=== PATIENT | male | born 1955 | race Caucasian/White ===

== ENCOUNTER 2018-01-18 08:26 | Emergency (ER) | payer BC, OTHER ==
[2018-01-18] MEDS ORDERED: IPRATROPIUM BROM 0.5MG/2.5ML ONE (09:48)
[2018-01-18] MEDS ORDERED: METHYLPREDNISOLONE 125 MG INJ ONE (09:48)
[2018-01-18] MEDS ORDERED: ALBUTEROL 2.5 MG/3 ML NEB SOL ONE ×2 (09:48→11:27)
[2018-01-18] MEDS ORDERED: NA CHLORIDE 0.9% 1,000 ML ONE (09:49)
[2018-01-18] MEDS ORDERED: FENTANYL CITR 100 MCG/2 ML ONE (09:49)
[2018-01-18] MEDS ORDERED: ONDANSETRON 4 MG/2 ML VIAL ONE (09:49)
[2018-01-18 09:59] LABS: Absolute Lymphocytes (CBC) 1.1 K/uL (0.7-4.9); Absolute Monocytes 1.4 K/uL (0.1-1.3); Absolute Neutrophil 9.4 K/uL (1.8-8.0); Basophils % 0.7 % (0-1.3); Eosinophils % 1.6 % (0-4.4); Hematocrit 38.2 % (39.6-49.0); Lymphocytes % 8.9 % (15.3-44.8); MCH 32.2 pg (27.0-35.0); MPV 7.1 fL (7.6-11.3); Monocytes % 11.8 % (3.3-12.3); RBC Red Blood Cell Count 4.11 M/uL (4.33-5.43)
[2018-01-18 10:02] LABS: Protime INR 1.12
[2018-01-18 10:22] LABS: ALT/SGPT 25 U/L (12-78); AST/SGOT 24 U/L (15-37); Albumin 3.1 g/dL (3.4-5.0); Alkaline Phosphatase 72 U/L (45-117); BUN Blood Urea Nitrogen 15 mg/dL (7-18); Bicarbonate 24 mmol/L (21-32); Bilirubin Direct 0.2 mg/dL (0-0.2); Bilirubin Total 0.5 mg/dL (0.2-1.0); Glucose Level 101 mg/dL (74-106); Magnesium 2.4 mg/dL (1.8-2.4); NT PRO-BNP 277 pg/mL (<125); Potassium 4.3 mmol/L (3.5-5.1); Protein, Total 7.1 g/dL (6.4-8.2); Sodium Level 142 mmol/L (136-145); Troponin (Emerg Dept Use Only) < 0.02 ng/mL (0.0-0.045)
--- NOTE | 2018-01-18 11:08 | RAD REPORT ---
EXAM DESCRIPTION: CT - Chest For Pe Angio - 01/18/2018 11:00 am CLINICAL HISTORY: Productive cough, chest pain, shortness of breath COMPARISON: None. TECHNIQUE: Dynamically enhanced 3 mm thick images of the chest were obtained during administration o f approximately 150mL Isovue 370 IV contrast. Coronal and oblique MIP reconstruction images were gene rated and reviewed. Exam utilizes a protocol to evaluate the pulmonary arterial tree. All CT scans are performed using dose optimization technique as appropriate and may include automated exposure control or mA/KV adjustment according to patient size. FINDINGS: No pulmonary emboli are identified. The aorta as imaged shows no acute or suspicious finding. No pericardial thickening or effusion. No consolidation or mass lesion. Right lower lobe interstitial opacification is present. No cavitatio n. Bronchial wall thickening is seen in the right lower lobe with no endobronchial lesion identified. No pleural effusion or pleural thickening. No mediastinal or hilar suspicious masses. No chest wall masses or abnormal axillary lymphadenopathy. IMPRESSION: No pulmonary emboli identified. Right lower lobe interstitial pneumonia changes are evident.
[2018-01-18] MEDS ORDERED: predniSONE 20 MG TAB ONE (11:27)
--- NOTE | 2018-01-18 11:29 | EDPHYS ---
Physician Documentation [facility] Name: Luciano Almanza Age: 62 yrs Sex: Male : 1955 Arrival Date: 01/18/2018 Time: 08:29 Bed 5 Private MD: Alcides Calvin R ED Physician Edson Freeman HPI: 01/18 09:33 This 62 yrs old Male presents to ER via Ambulatory with complaints of brett Shortness Of Breath. 09:33 The patient has shortness of breath at rest, with light activity. Onset: The brett symptoms/episode began/occurred 3 day(s) ago. Duration: The symptoms are continuous, and are steadily getting worse. The patient's shortness of breath has no apparent modifying factors. Associated signs and symptoms: Pertinent positives: productive cough, fever. Severity of symptoms: At their worst the symptoms were mild moderate in the emergency department the symptoms are unchanged. The patient has not experienced similar symptoms in the past. Historical: - Allergies: 08:40 Codeine; hb 08:40 Keflex; hb - Home Meds: 08:59 Omeprazole Oral [Active]; mexiletine Oral [Active]; zolpidem Oral [Active]; Hypothyroid sg Med [Active]; Lisinopril Oral for Hypertension [Active]; Cholesterol Med [Active]; Paxil Oral [Active]; - PMHx: 08:40 Hypertension; hb - PSHx: 08:40 None; hb - Immunization history:: Adult Immunizations up to date. - Social history:: Smoking status: Patient uses tobacco products, smokes two packs cigarettes per day. - Ebola Screening: : No symptoms or risks identified at this time. ROS: 09:34 Constitutional: Negative for fever, chills, and weight loss, Eyes: Negative for injury, brett pain, redness, and discharge, ENT: Negative for injury, pain, and discharge, Neck: Negative for injury, pain, and swelling, Cardiovascular: Negative for chest pain, palpitations, and edema, Abdomen/GI: Negative for abdominal pain, nausea, vomiting, diarrhea, and constipation, Back: Negative for injury and pain, : Negative for injury, bleeding, discharge, and swelling, MS/Extremity: Negative for injury and deformity, Skin: Negative for injury, rash, and discoloration, Neuro: Negative for headache, weakness, numbness, tingling, and seizure, Psych: Negative for depression, anxiety, suicide ideation, homicidal ideation, and hallucinations, Allergy/Immunology: Negative for hives, rash, and allergies, Endocrine: Negative for neck swelling, polydipsia, polyuria, polyphagia, and marked weight changes, Hematologic/Lymphatic: Negative for swollen nodes, abnormal bleeding, and unusual bruising. 09:34 Respiratory: Positive for cough, shortness of breath, wheezing, inspiratory, expiratory. Exam: 09:34 Constitutional: This is a well developed, well nourished patient who is awake, alert, brett and in no acute distress. Head/Face: Normocephalic, atraumatic. Eyes: Pupils equal round and reactive to light, extra-ocular motions intact. Lids and lashes normal. Conjunctiva and sclera are non-icteric and not injected. Cornea within normal limits. Periorbital areas with no swelling, redness, or edema. ENT: Nares patent. No nasal discharge, no septal abnormalities noted. Tympanic membranes are normal and external auditory canals are clear. Oropharynx with no redness, swelling, or masses, exudates, or evidence of obstruction, uvula midline. Mucous membranes moist. Neck: Trachea midline, no thyromegaly or masses palpated, and no cervical lymphadenopathy. Supple, full range of motion without nuchal rigidity, or vertebral point tenderness. No Meningismus. Chest/axilla: Normal chest wall appearance and motion. Nontender with no deformity. No lesions are appreciated. Cardiovascular: Regular rate and rhythm with a normal S1 and S2. No gallops, murmurs, or rubs. Normal PMI, no JVD. No pulse deficits. Abdomen/GI: Soft, non-tender, with normal bowel sounds. No distension or tympany. No guarding or rebound. No evidence of tenderness throughout. Back: No spinal tenderness. No costovertebral tenderness. Full range of motion. Male : Normal genitalia with no discharge or lesions. Skin: Warm, dry with normal turgor. Normal color with no rashes, no lesions, and no evidence of cellulitis. MS/ Extremity: Pulses equal, no cyanosis. Neurovascular intact. Full, normal range of motion. Neuro: Awake and alert, GCS 15, oriented to person, place, time, and situation. Cranial nerves II-XII grossly intact. Motor strength 5/5 in all extremities. Sensory grossly intact. Cerebellar exam normal. Normal gait. Psych: Awake, alert, with orientation to person, place and time. Behavior, mood, and affect are within normal limits. 09:34 Respiratory: mild respiratory distress is noted, Respirations: labored breathing, that is mild, Breath sounds: decreased breath sounds, rhonchi, wheezing: inspiratory expiratory 10:43 Musculoskeletal/extremity: DVT Exam: No signs of deep vein thrombosis. no pain, no brett swelling, no tenderness, negative Homans' sign noted on exam, no appreciated bluish discoloration, no erythema, no increased warmth. Vital Signs: 08:39 BP 158 / 93; Pulse 92; Resp 18; Temp 98.3; Pulse Ox 95% on R/A; Pain 4/10; hb 11:00 BP 138 / 72; Pulse 87; Resp 17 S; Pulse Ox 17% on R/A; Pain 0/10; sg 13:00 BP 132 / 77; Pulse 88; Resp 17; Temp 98.4; Pulse Ox 96% on R/A; Pain 0/10; sg MDM: 08:58 Patient medically screened. [facility] 09:36 Data reviewed: vital signs, nurses notes, lab test result(s), EKG, radiologic studies. [facility] 01/18 09:16 Order name: Basic Metabolic Panel; Complete Time: 10:35 [facility] 01/18 09:16 Order name: CBC with Diff; Complete Time: 10:35 [facility] 01/18 09:16 Order name: LFT's; Complete Time: 10:35 [facility] 01/18 09:16 Order name: Magnesium; Complete Time: 10:35 [facility] 01/18 09:16 Order name: NT PRO-BNP; Complete Time: 10:35 [facility] 01/18 09:16 Order name: PT-INR; Complete Time: 10:35 [facility] 01/18 09:16 Order name: Troponin (emerg Dept Use Only); Complete Time: 10:35 [facility] 01/18 09:16 Order name: XRAY Chest (1 view) [facility] 01/18 09:16 Order name: Lactate; Complete Time: 10:35 [facility] 01/18 09:16 Order name: Blood Culture Adult (2) [facility] 01/18 09:16 Order name: Procalcitonin; Complete Time: 11:18 [facility] 01/18 09:33 Order name: Flu; Complete Time: 10:35 [facility] 01/18 10:36 Order name: CT Chest For PE Angio; Complete Time: 11:18 [facility] 01/18 09:16 Order name: EKG; Complete Time: 09:18 [facility] 01/18 09:16 Order name: Cardiac monitoring; Complete Time: 09:16 [facility] 01/18 09:16 Order name: EKG - Nurse/Tech; Complete Time: 09:16 [facility] 01/18 09:16 Order name: IV Saline Lock; Complete Time: 09:16 [facility] 01/18 09:16 Order name: Labs collected and sent; Complete Time: 09:16 [facility] 01/18 09:16 Order name: O2 Per Protocol; Complete Time: 09:16 [facility] 01/18 09:16 Order name: O2 Sat Monitoring; Complete Time: 09:17 [facility] 01/18 09:35 Order name: Labs - recollect needed; Complete Time: 10:17 bd Administered Medications: 10:17 Drug: fentaNYL (PF) 25 mcg Route: IVP; Site: right antecubital; sg 11:04 Follow up: Response: No adverse reaction; Marked relief of symptoms sg 10:17 Drug: Zofran 4 mg Route: IVP; Site: right antecubital; sg 11:20 Follow up: Response: No adverse reaction; Nausea is decreased sg 10:18 Drug: NS 0.9% 1000 ml Route: IV; Rate: 1 bolus; Site: right antecubital; sg 12:31 Follow up: Response: No adverse reaction; IV Status: Completed infusion; IV Intake: sg 990ml 10:18 Drug: Albuterol - atroVENT (3:1) (2.5 mg - 0.5 mg) 3 ml Route: Nebulizer; sg 11:04 Follow up: Response: No adverse reaction sg 10:18 Drug: SOLU-Medrol 125 mg Route: IVP; Site: right antecubital; sg 11:04 Follow up: Response: No adverse reaction sg 11:35 Drug: predniSONE 40 mg Route: PO; sg 11:35 Drug: Albuterol 5 mg Route: Inhalation; sg 11:36 Drug: levofloxacin 750 mg Volume: 150 ml; Route: IVPB; Infused Over: 90 mins; Site: sg right antecubital; Disposition: 01/18/18 11:28 Discharged to Home. Impression: Dyspnea, unspecified, Chronic obstructive pulmonary disease with (acute) exacerbation, Tobacco abuse counseling, Tobacco use, Hypoxemia, Pneumonia due to other specified bacteria - right lower lobe. - Condition is Fair. - Discharge Instructions: Chronic Bronchitis, Chronic Obstructive Pulmonary Disease, How to Use an Inhaler, Community-Acquired Pneumonia, Adult, Shortness of Breath, Steps to Quit Smoking, Smoking Hazards, Chronic Obstructive Pulmonary Disease Exacerbation, Community-Acquired Pneumonia, Adult, Dfmt-ed-Dxsb. - Prescriptions for Levaquin 750 mg Oral Tablet - take 1 tablet by ORAL route once daily for 8-10 days; 9 tablet. Prednisone 20 mg Oral Tablet - take 2 tablet by ORAL route once daily for 5 days; 10 tablet. Albuterol Sulfate 90 mcg/actuation - inhale 1-2 puff by INHALATION route every 4-6 hours; 1 Inhaler. - Medication Reconciliation Form, Thank You Letter, Antibiotic Education, Prescription Opioid Use form. - Follow up: Alcides Calvin; When: 1 - 2 days; Reason: Recheck today's complaints, Continuance of care, Re-evaluation by your physician. - Problem is new. - Symptoms have improved. Signatures: Dispatcher [employer] EDMS Naldo Adams Barbara bd Gay, Steven, RN RN sg Anderson, Corey, MD MD cha Baxter, Heather, RN RN Corrections: (The following items were deleted from the chart) 13:14 11:28 01/18/2018 11:28 Discharged to Home. Impression: Dyspnea, unspecified; Chronic sg obstructive pulmonary disease with (acute) exacerbation; Tobacco abuse counseling; Tobacco use; Hypoxemia; Pneumonia due to other specified bacteria - right lower lobe. Condition is Fair. Discharge Instructions: Chronic Bronchitis, Chronic Obstructive Pulmonary Disease, How to Use an Inhaler, Shortness of Breath, Steps to Quit Smoking, Smoking Hazards, Chronic Obstructive Pulmonary Disease Exacerbation. Prescriptions for Levaquin 750 mg Oral Tablet - take 1 tablet by ORAL route once daily for 8-10 days; 9 tablet, Prednisone 20 mg Oral Tablet - take 2 tablet by ORAL route once daily for 5 days; 10 tablet, Albuterol Sulfate 90 mcg/actuation - inhale 1-2 puff by INHALATION route every 4-6 hours; 1 Inhaler. and Forms are Medication Reconciliation Form, Thank You Letter, Antibiotic Education, Prescription Opioid Use. Follow up: Alcides Calvin; When: 1 - 2 days; Reason: Recheck today's complaints, Continuance of care, Re-evaluation by your physician. Problem is new. Symptoms have improved. brett
--- NOTE | 2018-01-18 11:29 | RAD REPORT ---
EXAM DESCRIPTION: RAD - Chest Single View - 01/18/2018 10:11 am CLINICAL HISTORY: Productive cough, shortness of breath COMPARISON: October 2010 TECHNIQUE: AP portable chest image was obtained 0958 hours . FINDINGS: No focal mass or consolidation. Lung markings are accentuated by shallow inspiration. Mild interstitial edema or infiltrate could be masked by the chronic pattern. Heart and vasculature are normal. No measurable pleural effusion and no pneumothorax. No acute bony abnormality seen. No acute aortic findings suspected. IMPRESSION: Prominent interstitial lung pattern not substantially different. Early interstitial edema or infiltrate could be masked. No focal consolidation.
--- NOTE | 2018-01-18 11:29 | ER ---
Nurse's Notes [facility] Name: Luciano Almanza Age: 62 yrs Sex: Male : 1955 Arrival Date: 01/18/2018 Time: 08:29 Bed 5 Private MD: Alcides Calvin R Diagnosis: Dyspnea, unspecified;Chronic obstructive pulmonary disease with (acute) exacerbation;Tobacco abuse counseling;Tobacco use;Hypoxemia;Pneumonia due to other specified bacteria-right lower lobe Presentation: 01/18 08:38 Presenting complaint: SOB, productive cough, body aches and fever x 4 days. Transition hb of care: patient was not received from another setting of care. Onset of symptoms was January 18, 2018. Risk Assessment: Do you want to hurt yourself or someone else? Patient reports no desire to harm self or others. Care prior to arrival: None. 08:38 Method Of Arrival: Ambulatory hb 08:38 Acuity: PARAMJIT 3 hb 08:52 Initial Sepsis Screen: Does the patient meet any 2 criteria? RR > 20 per min. No. sg Patient's initial sepsis screen is negative. Does the patient have a suspected source of infection? Yes: Productive cough/pneumonia. Historical: - Allergies: 08:40 Codeine; hb 08:40 Keflex; hb - Home Meds: 08:59 Omeprazole Oral [Active]; mexiletine Oral [Active]; zolpidem Oral [Active]; Hypothyroid sg Med [Active]; Lisinopril Oral for Hypertension [Active]; Cholesterol Med [Active]; Paxil Oral [Active]; - PMHx: 08:40 Hypertension; hb - PSHx: 08:40 None; hb - Immunization history:: Adult Immunizations up to date. - Social history:: Smoking status: Patient uses tobacco products, smokes two packs cigarettes per day. - Ebola Screening: : No symptoms or risks identified at this time. Screenin:40 Abuse screen: Denies threats or abuse. Denies injuries from another. Nutritional hb screening: No deficits noted. Tuberculosis screening: No symptoms or risk factors identified. Fall Risk None identified. Assessment: 08:45 General: Appears in no apparent distress. comfortable, well groomed, well developed, sg well nourished, Behavior is calm, cooperative, appropriate for age. Pain: Denies pain. Neuro: Level of Consciousness is awake, alert, obeys commands. Cardiovascular: Heart tones S1 S2 present Capillary refill is brisk in bilateral fingers Patient's skin is warm and dry. Chest pain is denied. Respiratory: Reports cough that is non-productive, persistent Airway is patent Respiratory effort is even, unlabored, Respiratory pattern is regular, symmetrical, Breath sounds are diminished in right posterior middle lobe and right posterior lower lobe the patient has mild shortness of breath. GI: Abdomen is round non-distended, Bowel sounds present X 4 quads. : No signs and/or symptoms were reported regarding the genitourinary system. EENT: No signs and/or symptoms were reported regarding the EENT system. Derm: Skin is pink, warm \T\ dry. Musculoskeletal: No signs and/or symptoms reported regarding the musculoskeletal system. 13:03 Reassessment: Patient appears in no apparent distress at this time. Patient and/or sg family updated on plan of care and expected duration. Pain level reassessed. Patient is alert, oriented x 3, equal unlabored respirations, skin warm/dry/pink. pt reports feeling better, pt family at bedside at this time, pt to be dc to home as soon as IV abx complete infusion, pt and pt family stated understanding. Respiratory: Airway is patent Respiratory effort is even, unlabored, Respiratory pattern is regular, symmetrical, the patient reports symptoms have resolved. Vital Signs: 08:39 BP 158 / 93; Pulse 92; Resp 18; Temp 98.3; Pulse Ox 95% on R/A; Pain 4/10; hb 11:00 BP 138 / 72; Pulse 87; Resp 17 S; Pulse Ox 17% on R/A; Pain 0/10; sg 13:00 BP 132 / 77; Pulse 88; Resp 17; Temp 98.4; Pulse Ox 96% on R/A; Pain 0/10; sg ED Course: 08:29 Patient arrived in ED. sb2 08:30 Alcides Calvin MD is Private Physician. sb2 08:39 Triage completed. hb 08:40 Arm band placed on right wrist. hb 08:44 Arvind Fabian, RN is Primary Nurse. sg 08:45 Patient has correct armband on for positive identification. Bed in low position. Call sg light in reach. Side rails up X2. equipment monitor phototypesetting on. Pulse ox on. NIBP on. Warm blanket given. Pillow given. Head of bed elevated. 08:58 Edson Freeman MD is Attending Physician. brett 09:05 First set of blood cultures drawn by me. jb1 09:20 Inserted saline lock: 22 gauge in right antecubital area, using aseptic technique. jb1 Blood collected. 09:20 Second set of blood cultures drawn by me. jb1 09:22 Initial lab(s) drawn, by me, sent to lab. jb1 09:30 EKG done, by ED staff, reviewed by Edson Freeman MD. jb1 09:46 Flu and/or RSV swab sent to lab. jb1 10:11 XRAY Chest (1 view) In Process Unspecified. EDMS 10:[address] via stretcher. kw1 10:59 CT completed. Patient moved back from CT. kw1 11:07 CT Chest For PE Angio In Process Unspecified. EDMS 11:28 Alcides Calvin MD is Referral Physician. brett 11:40 Awaiting: awaiting IV fluids to infuse prior to DC to home. sg 13:13 No provider procedures requiring assistance completed. IV discontinued, intact, sg bleeding controlled, No redness/swelling at site. Pressure dressing applied. Administered Medications: 10:17 Drug: fentaNYL (PF) 25 mcg Route: IVP; Site: right antecubital; sg 11:04 Follow up: Response: No adverse reaction; Marked relief of symptoms sg 10:17 Drug: Zofran 4 mg Route: IVP; Site: right antecubital; sg 11:20 Follow up: Response: No adverse reaction; Nausea is decreased sg 10:18 Drug: NS 0.9% 1000 ml Route: IV; Rate: 1 bolus; Site: right antecubital; sg 12:31 Follow up: Response: No adverse reaction; IV Status: Completed infusion; IV Intake: sg 990ml 10:18 Drug: Albuterol - atroVENT (3:1) (2.5 mg - 0.5 mg) 3 ml Route: Nebulizer; sg 11:04 Follow up: Response: No adverse reaction sg 10:18 Drug: SOLU-Medrol 125 mg Route: IVP; Site: right antecubital; sg 11:04 Follow up: Response: No adverse reaction sg 11:35 Drug: predniSONE 40 mg Route: PO; sg 11:35 Drug: Albuterol 5 mg Route: Inhalation; sg 11:36 Drug: levofloxacin 750 mg Volume: 150 ml; Route: IVPB; Infused Over: 90 mins; Site: sg right antecubital; Intake: 12:31 IV: 990ml; Total: 990ml. sg Outcome: 11:28 Discharge ordered by . brett 13:13 Discharged to home ambulatory, with family. sg 13:13 Condition: good 13:13 Discharge instructions given to patient, Instructed on discharge instructions, follow up and referral plans. medication usage, safety practices, Demonstrated understanding of instructions, follow-up care, medications, Prescriptions given X 3. 13:14 Patient left the ED. sg Signatures: Dispatcher [employer] EDMS Naldo Adams jb1 Arvind Fabian RN RN sg Anderson, Corey, MD MD cha Baxter, Heather, RN RN Feli Shannon kw1 Ernestine Yip sb2 Corrections: (The following items were deleted from the chart) 11:42 08:45 Respiratory: Airway is patent Respiratory effort is even, unlabored, Respiratory sg pattern is regular, symmetrical, Breath sounds are clear sg 11:43 08:45 Respiratory: Airway is patent Respiratory effort is even, unlabored, Respiratory sg pattern is regular, symmetrical, Breath sounds are diminished in right posterior middle lobe and right posterior lower lobe sg
--- NOTE | 2018-01-19 07:42 | EKG ---
Test Date: 2018-01-18 Test Time: 09:19:56 Home Administrator: VIPIN MEASUREMENT RESULTS: Intervals: Rate: 88 AL: 122 QRSD: 88 QT: 372 QTc: 450 [place]: P: 75 AL: 122 QRS: 20 T: 49 INTERPRETIVE STATEMENTS: Normal sinus rhythm Normal ECG Compared to ECG 01/04/2009 18:22:36 No significant changes Electronically Signed On 01-19-18 07:40:21 [employer] by Juan David Childs
== END 2018-01-18 13:14 | disposition home or self-care (01) ==
LOC: ER 08:26
DX: J44.1 Chronic obstructive pulmonary disease with (acute) exacerbation (principal); J15.8 Pneumonia due to other specified bacteria; R09.02 Hypoxemia; I10 Essential (primary) hypertension; Z72.0 Tobacco use; Z71.6 Tobacco abuse counseling; Z88.5 Allergy status to narcotic agent; Z88.8 Allergy status to other drugs, medicaments and biological substances
CPT/HCPCS: 36415; 71045; 71275; 80048; 80076; 83605; 83735; 83880; 84145; 84484; 85025; 85610; 87040; 87804; 93005; 94640; 96361; 96374; 96375; 99285; J2405; J2930; J3010; J7030; J7512; Q9967